=== PATIENT | female | born 1955 | race Caucasian/White ===

== ENCOUNTER 2019-07-29 11:53 | Inpatient (IN) | payer MEDICARE ==
[~2019-07-29] VITALS: Ht 182.9 cm; Wt 88.0 kg
--- NOTE | 2019-07-29 12:28 | NUR ---
PROVIDER ASKED FOR AMONIA LEVEL, PT REPORTS HEP C DISEASE AND FORGETFULLNESS AT TIMES.
--- NOTE | 2019-07-29 12:28 | NUR ---
LUNCH RN: THIS IS A Y/O FEMALE THAT ARRIVES TO THE ED WITH A SNCOPAL EPISODE IN THE COMPANY OF HER SON. PT HAS MULTIPLE COMORBIDITIES AND RECENTL WENT TO [facility] FOR STEM CELL TREATMENT TO CURE HER DIABETES. PT REPORTS SHE DOES NOT FEEL WELL. PT HAS DRY MUCUS MEMBRANES AND PER SON MOTHER HAS LOST BOWEL CONTROL TODAY. PT HAS NO GROSS NEURO DEFICET AT THIS TIME. PER SON IS NORMALLY WEAK DUE TO HER COMORBIDITIES. PT CONNECTED TO MONITORS AND CALL LIGHT IN REACH.
--- NOTE | 2019-07-29 12:42 | NUR ---
requested records from [facility].
[2019-07-29] MEDS ORDERED: GABA300C10 PO (12:43)
[2019-07-29] MEDS ORDERED: SPIR100T4 PO (12:43)
[2019-07-29] MEDS ORDERED: INSU100V13 SC (12:43)
[2019-07-29] MEDS ORDERED: FURO20TA3 PO (12:43)
[2019-07-29] MEDS ORDERED: METO50TA82 PO (12:43)
[2019-07-29] MEDS ORDERED: TRAZ-175 PO (12:48)
[2019-07-29] MEDS ORDERED: INSU100C5 SQ-INSULIN (12:48)
[2019-07-29] MEDS ORDERED: FLUT1DIS3 INH (12:48)
[2019-07-29 12:55] LABS: ALBUMIN 3.3 g/dL (3.4-5.0); ANION GAP 8 mmol/L (5-15); CALCIUM 9.4 mg/dL (8.5-10.1); CHLORIDE 109 mmol/L (98-107); CREATININE 1.57 mg/dL (0.55-1.02)
[2019-07-29 13:06] LABS: ALBUMIN 3.2 g/dL (3.4-5.0); BILIRUBIN, DIRECT 0.5 mg/dL (0.1-0.2)
[2019-07-29 13:07] LABS: BILIRUBIN,INDIRECT 1.1 mg/dL (0.0-2.0); BILIRUBIN,TOTAL 1.6 mg/dL (0.2-1.0); TOTAL PROTEIN 7.7 g/dL (6.4-8.2)
--- NOTE | 2019-07-29 13:09 | NUR ---
pt in ct at this time.
[2019-07-29 13:32] LABS: MEAN CORPUSCULAR HEMOGLOBIN 30.9 pg (27.0-34.8); MEAN CORPUSCULAR HGB CONC 33.6 g/dL (32.4-35.8); MEAN CORPUSCULAR VOLUME 91.9 fL (80-100); RED BLOOD COUNT 4.25 x10^6/uL (3.82-5.3); RED CELL DISTRIBUTION WIDTH 14.7 % (9.6-15.2)
--- NOTE | 2019-07-29 13:38 | NUR ---
pt amb to br and back to room with one assistant accounting manager. pt provided urine sample. ua sent.
[2019-07-29 13:39] LABS: BASOPHILS # (AUTO) 0.01 x10^3/uL (0-0.1); BASOPHILS % (AUTO) 0 % (0-1); EOSINOPHILS % (AUTO) 0 % (1-7); LYMPHOCYTES # (AUTO) 0.44 x10^3/uL (1-3.4); LYMPHOCYTES % (AUTO) 16 % (22-44); MD SCAN; MEAN PLATELET VOLUME 8.7 fL (7.4-10.4); MONOCYTES # (AUTO) 0.34 x10^3/uL (0.2-0.8); MONOCYTES % (AUTO) 12 % (2-9); NEUTROPHILS # (AUTO) 1.98 x10^3/uL (1.8-6.8); NEUTROPHILS % (AUTO) 72 % (42-75); PLATELET COUNT 75 x10^3/uL (130-400)
[2019-07-29] MEDS ORDERED: SODIUM CHLORIDE 0.9%, 500ML IVBOLUS ONE (14:00)
[2019-07-29 14:02] LABS: MICROSCOPIC AUTO
[2019-07-29 14:09] LABS: CULTURE INDICATED? NO
--- NOTE | 2019-07-29 14:25 | NUR ---
NS INFUSING AT THIS TIME. PT TOLERATED WELL.
--- NOTE | 2019-07-29 15:06 | NUR ---
REPORT GIVEN TO HELEN HUYNH. ALL QUESTIONS ANSWERED.
[2019-07-29 16:14] VITALS: BP 124/86
[2019-07-29] MEDS ORDERED: hydrALAzine 20 MG/ML, 1ML IVPush PRN (17:30)
[2019-07-29] MEDS ORDERED: ONDANSETRON 2MG/ML, 2ML IVPush PRN (17:30)
[2019-07-29] MEDS: INSULIN LISPRO 100 UNITS/ML, PEN SQ-INSULIN SCH ×2 (17:30→22:29)
[2019-07-29] MEDS: HEPARIN 5,000 UNITS/ML, 1ML SQ SCH (18:17)
[2019-07-29] MEDS: METOPROLOL SUCCINATE 50 MG TAB.ER.24H PO SCH (18:19)
[2019-07-29] MEDS: ACETAMINOPHEN 325 MG TABLET PO PRN (19:22)
[2019-07-29 19:46] VITALS: BP 109/74
[2019-07-29] MEDS ORDERED: GABAPENTIN 300 MG CAPSULE PO SCH (21:00)
[2019-07-29] MEDS: FUROSEMIDE 20 MG TABLET PO SCH (21:00)
[2019-07-29] MEDS: GABAPENTIN 100 MG CAPSULE PO SCH (21:54)
[2019-07-29] MEDS: INSULIN GLARGINE 100 UNITS/ML, PEN SQ-INSULIN SCH (22:29)
[2019-07-30] VITALS (7 sets, daily range): BP systolic 109–130; BP diastolic 73–89
[2019-07-30] MEDS: HEPARIN 5,000 UNITS/ML, 1ML SQ SCH ×3 (02:17→20:11)
[2019-07-30] MEDS: ACETAMINOPHEN 325 MG TABLET PO PRN ×3 (02:18→16:52)
[2019-07-30 05:35] LABS: ALANINE AMINOTRANSFERASE 37 U/L (12-78); ALBUMIN 2.7 g/dL (3.4-5.0); ANION GAP 5 mmol/L (5-15); CALCIUM 8.6 mg/dL (8.5-10.1); CHLORIDE 112 mmol/L (98-107); CREATININE 1.34 mg/dL (0.55-1.02)
[2019-07-30 05:38] LABS: ALKALINE PHOSPHATASE 100 U/L (45-117); BILIRUBIN,TOTAL 1.3 mg/dL (0.2-1.0); TOTAL PROTEIN 6.5 g/dL (6.4-8.2)
[2019-07-30 05:39] LABS: MEAN CORPUSCULAR HEMOGLOBIN 30.9 pg (27.0-34.8); MEAN CORPUSCULAR HGB CONC 33.7 g/dL (32.4-35.8); MEAN CORPUSCULAR VOLUME 91.8 fL (80-100); RED BLOOD COUNT 3.67 x10^6/uL (3.82-5.3); RED CELL DISTRIBUTION WIDTH 14.7 % (9.6-15.2)
[2019-07-30] MEDS: METOPROLOL SUCCINATE 50 MG TAB.ER.24H PO SCH (06:06)
[2019-07-30 06:15] LABS: BASOPHILS # (AUTO) 0.01 x10^3/uL (0-0.1); BASOPHILS % (AUTO) 1 % (0-1); EOSINOPHILS # (AUTO) 0.03 x10^3/uL (0-0.4); EOSINOPHILS % (AUTO) 2 % (1-7); LYMPHOCYTES # (AUTO) 0.44 x10^3/uL (1-3.4); LYMPHOCYTES % (AUTO) 28 % (22-44); MD SCAN; MEAN PLATELET VOLUME 8.6 fL (7.4-10.4); MONOCYTES # (AUTO) 0.21 x10^3/uL (0.2-0.8); MONOCYTES % (AUTO) 13 % (2-9); NEUTROPHILS # (AUTO) 0.88 x10^3/uL (1.8-6.8); NEUTROPHILS % (AUTO) 56 % (42-75); PLATELET COUNT 59 x10^3/uL (130-400)
[2019-07-30] MEDS: INSULIN LISPRO 100 UNITS/ML, PEN SQ-INSULIN SCH ×4 (08:26→20:40)
[2019-07-30] MEDS ORDERED: GABAPENTIN 100 MG CAPSULE PO SCH (09:00)
[2019-07-30] MEDS: FUROSEMIDE 20 MG TABLET PO SCH ×2 (10:22→20:10)
[2019-07-30] MEDS: SPIRONOLACTONE 100 MG TABLET PO SCH (10:22)
[2019-07-30] MEDS: GABAPENTIN 100 MG CAPSULE PO SCH ×2 (10:23→20:11)
[2019-07-30] MEDS: INSULIN GLARGINE 100 UNITS/ML, PEN SQ-INSULIN SCH (20:39)
[2019-07-31] VITALS (8 sets, daily range): BP systolic 106–127; BP diastolic 73–86
[2019-07-31] MEDS: METOPROLOL SUCCINATE 50 MG TAB.ER.24H PO SCH (05:06)
[2019-07-31] MEDS: HEPARIN 5,000 UNITS/ML, 1ML SQ SCH ×2 (05:07→11:28)
[2019-07-31] MEDS: ACETAMINOPHEN 325 MG TABLET PO PRN (05:07)
[2019-07-31 05:31] LABS: ANION GAP 4 mmol/L (5-15); CALCIUM 8.5 mg/dL (8.5-10.1); CHLORIDE 109 mmol/L (98-107); CREATININE 1.25 mg/dL (0.55-1.02)
[2019-07-31 05:45] LABS: MEAN CORPUSCULAR HEMOGLOBIN 31.2 pg (27.0-34.8); MEAN CORPUSCULAR HGB CONC 33.7 g/dL (32.4-35.8); MEAN CORPUSCULAR VOLUME 92.5 fL (80-100); MEAN PLATELET VOLUME 8.6 fL (7.4-10.4); PLATELET COUNT 59 x10^3/uL (130-400); RED BLOOD COUNT 3.83 x10^6/uL (3.82-5.3); RED CELL DISTRIBUTION WIDTH 14.8 % (9.6-15.2)
[2019-07-31 06:13] LABS: BASOPHILS % (AUTO) 0 % (0-1); EOSINOPHILS # (AUTO) 0.03 x10^3/uL (0-0.4); EOSINOPHILS % (AUTO) 2 % (1-7); LYMPHOCYTES # (AUTO) 0.37 x10^3/uL (1-3.4); LYMPHOCYTES % (AUTO) 25 % (22-44); MD SCAN; MONOCYTES # (AUTO) 0.23 x10^3/uL (0.2-0.8); MONOCYTES % (AUTO) 16 % (2-9); NEUTROPHILS # (AUTO) 0.84 x10^3/uL (1.8-6.8); NEUTROPHILS % (AUTO) 57 % (42-75)
[2019-07-31] MEDS: FUROSEMIDE 20 MG TABLET PO SCH (08:27)
[2019-07-31] MEDS: SPIRONOLACTONE 100 MG TABLET PO SCH (08:27)
[2019-07-31] MEDS: INSULIN LISPRO 100 UNITS/ML, PEN SQ-INSULIN SCH ×3 (08:28→16:00)
[2019-07-31] MEDS: GABAPENTIN 100 MG CAPSULE PO SCH (08:32)
== END 2019-07-31 16:31 | disposition home health service (06) | DRG 308 ==
LOC: SUATTDRO 14:00 → ED 14:11 → EDIP 14:46 → 4WST 15:44 → 5SO 18:02
PROVIDERS: ADMIT Hospitalist; ATTEND Internal Medicine
DX: I48.91 Unspecified atrial fibrillation (principal); N17.0 Acute kidney failure with tubular necrosis; G93.41 Metabolic encephalopathy; D68.69 Other thrombophilia; E87.2 Acidosis; E86.0 Dehydration; B19.20 Unspecified viral hepatitis C without hepatic coma; E11.9 Type 2 diabetes mellitus without complications; K74.60 Unspecified cirrhosis of liver; Z86.14 Personal history of Methicillin resistant Staphylococcus aureus infection; Z87.891 Personal history of nicotine dependence; Z91.81 History of falling
CPT/HCPCS: 36415; 70450; 70551; 80048; 80053; 80076; 81001; 82040; 82140; 82962; 83036; 83605; 83735; 84100; 84443; 85025; 93005; 93306; 93880; 96360; G0378; J1644; J1815; J7040